=== PATIENT | male | born 1960 | race Caucasian/White ===

== ENCOUNTER 2024-11-02 21:51 | Emergency (ER) | payer MEDICARE, OTHER ==
[~2024-11-02] VITALS: Ht 167.6 cm; Wt 49.9 kg
[2024-11-02 22:24] LABS: BASOPHILS # (AUTO) 0.1 K/uL (0.0-0.2); BASOPHILS % (AUTO) 0.7 % (0.0-2.0); EOSINOPHILS # (AUTO) 0.2 K/uL (0.0-0.7); EOSINOPHILS % (AUTO) 2.2 % (0.0-6.0); HEMATOCRIT 41 % (39-51); HEMOGLOBIN 14.2 g/dL (13.5-17.5); LYMPHOCYTES # (AUTO) 2.4 K/uL (0.8-4.8); LYMPHOCYTES % (AUTO) 27.2 % (20.0-44.0); MEAN CORPUSCULAR HEMOGLOBIN 31 PG (26.0-33.0); MEAN CORPUSCULAR HGB CONC 35 g/dl (31.0-36.0); MEAN CORPUSCULAR VOLUME 88 fL (80-96); MONOCYTES % (AUTO) 11.5 % (2.0-12.0); NEUTROPHILS # (AUTO) 5.1 K/uL (1.8-8.9); NEUTROPHILS % (AUTO) 58.4 % (43.0-81.0); PLATELET COUNT (AUTO) 241 K/uL (150-450); WHITE BLOOD COUNT (AUTO) 8.7 K/uL (4.3-11.0)
[2024-11-02 22:31] LABS: CALCIUM, SERUM 9.5 mg/dL (8.5-10.1); CARBON DIOXIDE 27 mmol/L (21-32); CHLORIDE 102 mmol/L (98-107); CREATININE 0.7 mg/dL (0.6-1.3); GLUCOSE 105 mg/dL (74-106); POTASSIUM 3.6 mmol/L (3.5-5.1); SODIUM SERUM 136 mmol/L (136-145); UREA NITROGEN, BLOOD 19 mg/dL (7-18)
[2024-11-02 22:38] LABS: ACETAMINOPHEN <10 ug/ml (10-30); ALANINE AMINOTRANSFERASE 14 U/L (12-78); ALBUMIN 3.4 g/dL (3.4-5.0); ALCOHOL, BLOOD < 3 mg/dL (0-10); ALKALINE PHOSPHATASE 87 U/L (46-116); ASPARTATE AMINOTRANSFERASE 20 U/L (15-37); BILIRUBIN,DIRECT 0.1 mg/dL (0.0-0.2); BILIRUBIN,TOTAL 0.3 mg/dL (0.2-1.0); SALICYLATE 1.1 mg/dL (2.8-20.0); TOTAL PROTEIN, SERUM 6.9 g/dL (6.4-8.2)
[2024-11-02 23:45] LABS: APPEARANCE,URINE CLEAR (CLEAR); BILIRUBIN,URINE NEGATIVE (NEGATIVE); BLOOD, URINE NEGATIVE Ery/uL (NEGATIVE); COLOR,URINE YELLOW (YELLOW); KETONES,URINE NEGATIVE (NEGATIVE); LEUKOCYTE ESTERASE ,URINE NEGATIVE (NEGATIVE); NITRITE, URINE NEGATIVE (NEGATIVE); PROTEIN,URINE NEGATIVE (NEGATIVE); UGLUCOSE NEGATIVE (NEGATIVE)
[2024-11-02 23:53] LABS: AMPHETAMINE, URINE NEGATIVE (NEGATIVE); BARBITURATE, URINE NEGATIVE (NEGATIVE); BENZODIAZEPINE, URINE NEGATIVE (NEGATIVE); CANNABINOID, URINE NEGATIVE (NEGATIVE); COCCAINE, URINE NEGATIVE (NEGATIVE); OPIATE, URINE NEGATIVE (NEGATIVE); PHENCYCLIDINE SCREEN,URINE NEGATIVE (NEGATIVE)
[2024-11-03 00:10] LABS: ADD URINE CULTURE NO; BACTERIA,URINE Rare /HPF (None Seen); RBC,URINE 0-2 /HPF (0-2); SQUAMOUS EPITHELIAL CELL,UR None Seen /HPF (None Seen); WBC,URINE 0-2 /HPF (0-3)
[2024-11-03] MEDS ORDERED: BRIM5DRO11 EACHEYE (02:01)
[2024-11-03] MEDS ORDERED: ALBU2.5V38 NEB (02:01)
[2024-11-03] MEDS ORDERED: LEVE500T9 PO (02:02)
[2024-11-03] MEDS ORDERED: GABA100C PO (02:02)
[2024-11-03] MEDS ORDERED: MULT-594 PO (02:02)
[2024-11-03] MEDS ORDERED: THIA100T88 PO (02:02)
[2024-11-03] MEDS ORDERED: RISP2TAB5 PO (02:02)
[2024-11-03] MEDS ORDERED: FLUT1BLS13 IH (02:02)
[2024-11-03] MEDS ORDERED: POTA10CA43 PO (02:02)
[2024-11-03] MEDS ORDERED: LINA290C PO (02:02)
[2024-11-03] MEDS ORDERED: DOCU100T2 PO (02:02)
[2024-11-03] MEDS ORDERED: MIRT-121 PO (02:02)
[2024-11-03] MEDS ORDERED: LATA2.5D2 EACHEYE (02:02)
[2024-11-03] MEDS ORDERED: APIX5TAB PO (02:02)
[2024-11-03] MEDS ORDERED: [UNRECOGNIZED DRUG - CODE] EACHEYE (02:02)
[2024-11-03] MEDS ORDERED: TIMO5DRO18 EACHEYE (02:02)
[2024-11-03] MEDS ORDERED: QUET50TA PO (02:02)
[2024-11-03] MEDS ORDERED: ATOR10TA PO (02:02)
[2024-11-03] MEDS ORDERED: ASCO500C18 PO (02:02)
[2024-11-03] MEDS ORDERED: CHOL100045 PO (02:02)
[2024-11-03] MEDS ORDERED: SODI100037 PO (02:02)
[2024-11-03] MEDS ORDERED: LEVO25TA7 PO (02:02)
[2024-11-03] MEDS ORDERED: CRAN400C PO (02:02)
[2024-11-03] MEDS ORDERED: FOLI0.4T6 PO (02:02)
[2024-11-03] MEDS ORDERED: METO25TA6 PO (02:02)
[2024-11-03] MEDS ORDERED: TRAZ-257 PO (02:02)
[2024-11-03] MEDS ORDERED: TORS10TA17 PO (02:02)
[2024-11-03 11:20] VITALS: BP 117/74; TEMP 98.6; O2SAT 98
== END 2024-11-03 11:21 ==
LOC: ER 21:56
DX: R45.6 Violent behavior (principal); I10 Essential (primary) hypertension; F20.9 Schizophrenia, unspecified; Z79.01 Long term (current) use of anticoagulants; Z79.51 Long term (current) use of inhaled steroids; Z79.890 Hormone replacement therapy; Z79.899 Other long term (current) drug therapy; Z20.822 Contact with and (suspected) exposure to COVID-19
CPT/HCPCS: 36415; 80048-TC; 80076-TC; 81001; 85025-TC; G0480